=== PATIENT | female | born 1945 | race Caucasian/White ===

== ENCOUNTER 2021-03-11 12:34 | Inpatient (IN) | payer OTHER ==
[~2021-03-11] VITALS: Ht 167.6 cm; Wt 110.6 kg
[2021-03-11 13:57] LABS: BASOPHILS ABSOLUTE AUTO 0.01 K/mm3 (0.00-0.23); BASOPHILS PERCENT AUTO 0 % (0-2); EOSINOPHILS PERCENT AUTO 0 % (0-6); Hemoglobin 12.7 g/dL (11.5-16.0); IMMATURE GRAN ABSOLUTE AUTO 0.01 K/mm3 (0.00-0.10); IMMATURE GRAN PERCENT AUTO 0 % (0-1); LYMPHOCYTES ABSOLUTE AUTO 0.54 K/mm3 (0.84-5.20); LYMPHOCYTES PERCENT AUTO 13 % (21-46); MONOCYTES ABSOLUTE AUTO 0.27 K/mm3 (0.16-1.47); MONOCYTES PERCENT AUTO 7 % (4-13); Mean Corpuscular HGB 28.1 pg (26.0-34.0); Mean Corpuscular HGB Conc 31.8 g/dL (31.5-36.5); Mean Corpuscular Volume 89 fL (80-100); Mean Platelet Volume 10.5 fL (9.1-12.4); NEUTROPHILS PERCENT AUTO 80 % (41-73); Platelet Count 147 K/mm3 (150-400); RDW Coefficient Variation 15.1 % (11.7-14.2); RDW Standard Deviation 49.7 fL (35.1-46.3); Red Blood Cell Count 4.52 M/mm3 (3.80-5.20); White Blood Cell Count 4.03 K/mm3 (4.00-11.30)
[2021-03-11 14:32] LABS: Influenza A, PCR NEGATIVE (NEGATIVE); Influenza B, PCR NEGATIVE (NEGATIVE); Resp Syncytial Virus, PCR NEGATIVE (NEGATIVE)
[2021-03-11 14:35] LABS: Alanine Aminotransfer (ALT/SGP 88 U/L (12-78); Albumin, Blood 2.6 g/dL (3.4-5.0); Albumin/Globulin Ratio 0.7 (0.8-1.8); Alk Phos 69 U/L (50-136); Anion Gap 6 mmol/L (6-16); Aspartate Aminotrans (AST/SGOT 59 U/L (12-37); Bilirubin, Total 0.2 mg/dL (0.1-1.0); Blood Urea Nitrogen 12 mg/dL (8-24); Bun/Creatinine Ratio 18.8 (12.0-20.0); CO2, Blood 29 mmol/L (21-32); Calcium, Blood 8.6 mg/dL (8.5-10.1); Chloride, Blood 102 mmol/L (98-108); Creatinine, Blood 0.64 mg/dL (0.40-1.00); Globulin, Blood 3.7 g/dL (2.2-4.0); Glomerular Filtration Rate >60 (60-); Glucose, Blood 164 mg/dL (70-99); Magnesium, Blood 2.2 mg/dL (1.6-2.4); Potassium, Blood 3.4 mmol/L (3.5-5.5); Sodium, Blood 137 mmol/L (136-145); Total Protein, Blood 6.3 g/dL (6.4-8.2); Troponin I <0.015 ng/mL (0.000-0.040)
[2021-03-11 14:37] LABS: SARS-Cov-2 (COVID-19) PCR, MMC POSITIVE (NEGATIVE)
[2021-03-11] MEDS ORDERED: EUTHYROX88 MCG PO (16:51)
[2021-03-11] MEDS ORDERED: DOCU100 PO (16:51)
[2021-03-11] MEDS ORDERED: ACET325 PO (16:51)
[2021-03-11] MEDS ORDERED: MAGNESIUM OXID500 MG PO (16:52)
[2021-03-11] MEDS ORDERED: MELATONIN5 M1 PO (16:52)
[2021-03-11] MEDS ORDERED: OLAN5 PO (16:52)
[2021-03-11] MEDS ORDERED: SENNA LAXATIVE8.6 MG PO (16:53)
[2021-03-11] MEDS ORDERED: OMEP20ER PO (16:53)
[2021-03-11] MEDS ORDERED: MIRALAX17 GM PO (16:53)
[2021-03-11] MEDS ORDERED: TRAZ150T57 PO (16:54)
[2021-03-11] MEDS ORDERED: TAMO10 PO (16:54)
[2021-03-11] MEDS ORDERED: Vitamin D1000 UNI1 PO (16:54)
[2021-03-11] MEDS ORDERED: DULCOLAX400 MG/5 M PO (16:55)
[2021-03-11] MEDS ORDERED: NYSTOP15 GM TOP (16:55)
[2021-03-11] MEDS ORDERED: OLAN2.5 PO (16:55)
[2021-03-11] MEDS ORDERED: ALBU90OI (16:55)
--- NOTE | 2021-03-11 19:08 | NUR ---
1800 RECEIVED PT TO RM 324 VIA [facility] FROM ER. SLIDE TX TO BED. RECEIVED REPORT FROM MUSA LAW. PT ADMITTED WITH SOB R/T COVID. ON RA AT HOME; PLACED ON 6L O2 VIA NC. INNA AND CO-OP WITH CARE. REPORTS USING FWW AT [facility] TO GET AROUND. PER REPORT, PT FROM "[facility]" [facility] [place]. HOME MED LIST INCOMPLETE AT THIS TIME; NOT SENT UP BY ER REQUESTED. DINNER TRAY ORDERED. REPORT GIVEN TO ONCOMING RN. CALL LT IN REACH.
[2021-03-12 04:57] LABS: BASOPHILS ABSOLUTE AUTO 0.01 K/mm3 (0.00-0.23); BASOPHILS PERCENT AUTO 0 % (0-2); EOSINOPHILS PERCENT AUTO 0 % (0-6); Hematocrit 40.3 % (33.0-51.0); Hemoglobin 12.4 g/dL (11.5-16.0); IMMATURE GRAN ABSOLUTE AUTO 0.02 K/mm3 (0.00-0.10); IMMATURE GRAN PERCENT AUTO 0 % (0-1); LYMPHOCYTES ABSOLUTE AUTO 0.71 K/mm3 (0.84-5.20); LYMPHOCYTES PERCENT AUTO 15 % (21-46); MONOCYTES ABSOLUTE AUTO 0.28 K/mm3 (0.16-1.47); MONOCYTES PERCENT AUTO 6 % (4-13); Mean Corpuscular HGB Conc 30.8 g/dL (31.5-36.5); Mean Corpuscular Volume 91 fL (80-100); Mean Platelet Volume 10.2 fL (9.1-12.4); NEUTROPHILS ABSOLUTE AUTO 3.84 K/mm3 (1.96-9.15); NEUTROPHILS PERCENT AUTO 79 % (41-73); Platelet Count 148 K/mm3 (150-400); RDW Coefficient Variation 15.2 % (11.7-14.2); RDW Standard Deviation 51.1 fL (35.1-46.3); Red Blood Cell Count 4.43 M/mm3 (3.80-5.20); White Blood Cell Count 4.86 K/mm3 (4.00-11.30)
--- NOTE | 2021-03-12 05:30 | NUR ---
SHIFT SUMMARY: PT IS A/OX4. O2 SATS HAVE BEEN >92% WITH 5-6L. RA IS HER BASELINE SHE NOW IS ON CONTINOUS PULSE OX. THE PT DID WELL WITH SBA FWW TO THE BR. SHE DID RECEIVE HER 1ST DOSE OF REMDESIVIR THIS NOC SHIFT. CALL LIGHT IS WITHIN REACH AND WE'LL CONTINUE TO MONITOR.
[2021-03-12 05:39] LABS: Anion Gap 5 mmol/L (6-16); Blood Urea Nitrogen 11 mg/dL (8-24); Bun/Creatinine Ratio 18.8 (12.0-20.0); CO2, Blood 33 mmol/L (21-32); Calcium, Blood 8.4 mg/dL (8.5-10.1); Chloride, Blood 104 mmol/L (98-108); Creatinine, Blood 0.59 mg/dL (0.40-1.00); Glomerular Filtration Rate >60 (60-); Glucose, Blood 112 mg/dL (70-99); Potassium, Blood 4.1 mmol/L (3.5-5.5); Sodium, Blood 142 mmol/L (136-145)
--- NOTE | 2021-03-12 15:41 | NUR ---
SHIFT SUMMARY PT RESTING QUIETLY IN BED THRU OUT THE DAY. UP TO BTHRM USING FWW WITH SBA. PT REMAINS ON 6L O2 VIA NC WITH SATS IN LOW TO MID 90'S. PT DOES DESAT WHEN UP TO BTHRM AND APPEARS TO HAVE DYSPNEA WITH EXERTION. PT DOES RECOVER WELL ONCE BACK IN BED. PT IS MOSTLY CONTINENT OF URINE; HAS BEEN INCONTINENT 3X'S TODAY. BED ALARM ON FOR SAFETY, PT DOES NOT ALWAYS CALL FOR ASSIST. PT IS EATING AND DRINKING FAIRLY WELL. NO C/O. DENIES FURTHER NEEDS. CALL LT IN REACH.
--- NOTE | 2021-03-13 04:31 | NUR ---
Shift Summary Patient remains on 6L of O2 via N/C. She is AAOX3, No complaint of pain. She slept throughout the nignt. No acute changes. We will continue to monitor patient.
[2021-03-13 05:11] LABS: International Normalized Ratio 0.99; Prothrombin Time Results 10.4 Sec (9.7-11.5)
[2021-03-13 05:41] LABS: Anion Gap 5 mmol/L (6-16); Blood Urea Nitrogen 15 mg/dL (8-24); Bun/Creatinine Ratio 26.1 (12.0-20.0); CO2, Blood 34 mmol/L (21-32); Calcium, Blood 8.5 mg/dL (8.5-10.1); Chloride, Blood 102 mmol/L (98-108); Creatinine, Blood 0.57 mg/dL (0.40-1.00); Ferritin, Serum 320 ng/mL (8-252); Glomerular Filtration Rate >60 (60-); Glucose, Blood 107 mg/dL (70-99); Lactate Dehydrogenase (Ld),Bld 275 U/L (100-240); Magnesium, Blood 2.3 mg/dL (1.6-2.4); Potassium, Blood 3.9 mmol/L (3.5-5.5); Sodium, Blood 141 mmol/L (136-145); Troponin I <0.015 ng/mL (0.000-0.040)
[2021-03-13 09:00] LABS: BASOPHILS ABSOLUTE AUTO 0.01 K/mm3 (0.00-0.23); BASOPHILS PERCENT AUTO 0 % (0-2); EOSINOPHILS PERCENT AUTO 0 % (0-6); Hematocrit 41.7 % (33.0-51.0); Hemoglobin 12.8 g/dL (11.5-16.0); IMMATURE GRAN ABSOLUTE AUTO 0.03 K/mm3 (0.00-0.10); IMMATURE GRAN PERCENT AUTO 1 % (0-1); LYMPHOCYTES PERCENT AUTO 19 % (21-46); MONOCYTES ABSOLUTE AUTO 0.37 K/mm3 (0.16-1.47); MONOCYTES PERCENT AUTO 9 % (4-13); Mean Corpuscular HGB 28.1 pg (26.0-34.0); Mean Corpuscular HGB Conc 30.7 g/dL (31.5-36.5); Mean Corpuscular Volume 92 fL (80-100); Mean Platelet Volume 10.4 fL (9.1-12.4); NEUTROPHILS ABSOLUTE AUTO 2.96 K/mm3 (1.96-9.15); NEUTROPHILS PERCENT AUTO 71 % (41-73); Platelet Count 193 K/mm3 (150-400); RDW Coefficient Variation 15.3 % (11.7-14.2); RDW Standard Deviation 51.1 fL (35.1-46.3); Red Blood Cell Count 4.55 M/mm3 (3.80-5.20); White Blood Cell Count 4.17 K/mm3 (4.00-11.30)
--- NOTE | 2021-03-13 18:04 | NUR ---
DAY SHIFT SUMMARY 75 YEAR OLD FEMALE WITH COVID-19, ON 6L O2 WITH O2 SATS IN THE HIGHER 80'S. STANDBY ASSIST TO BSC. WHEEZING AUDIBLY NOTED. CALL LIGHT WITHIN REACH OF PT AND ABLE TO CALL APPROPRIATELY. NO ACUTE CHANGES WITH PT THIS SHIFT.
--- NOTE | 2021-03-14 03:07 | NUR ---
Pt is alert and oriented x4. No complains of pain. During start of shift pt was in 6L oxygen NC O2 levels between 85-90%. Patient complains of SOB especially during exertion. During hourly rounding, pt was found with O2 of 81-85%, called respiratory therapist, RT placed patient on a heated high flow 55 L patient O2 saturation is at 93-95%. When patients gets up to ambulate, her oxygen levels drop significantly and it takes several minutes for her oxygen level to increase. she is laying on bed comfortable. all needs attended. pt had a snack as well. call light within reach.
--- NOTE | 2021-03-14 03:52 | NUR ---
Pt was placed in CPAP for oxygen. Dr. Fritz notified. RT Kerwin is assisting with the CPAP. Pt is now resting. No signs of respiratory distress. No complains of pain.
--- NOTE | 2021-03-14 04:54 | NUR ---
Pt is going to PCU for upgrade needing higher oxygen. Spoke with Dr. Fritz, received orders for upgrade to PCU, XR CHEST, 40 MG lasix IV. Report given to ANI Vásquez
[2021-03-14 05:41] LABS: BASOPHILS PERCENT AUTO 0 % (0-2); EOSINOPHILS PERCENT AUTO 0 % (0-6); Hematocrit 40.3 % (33.0-51.0); Hemoglobin 12.9 g/dL (11.5-16.0); Mean Corpuscular HGB 28.5 pg (26.0-34.0); Mean Corpuscular Volume 89 fL (80-100); Mean Platelet Volume 10.1 fL (9.1-12.4); Platelet Count 218 K/mm3 (150-400); RDW Coefficient Variation 14.5 % (11.7-14.2); RDW Standard Deviation 47.4 fL (35.1-46.3); Red Blood Cell Count 4.53 M/mm3 (3.80-5.20); White Blood Cell Count 3.34 K/mm3 (4.00-11.30)
[2021-03-14 05:42] LABS: IMMATURE GRAN ABSOLUTE AUTO 0.02 K/mm3 (0.00-0.10); IMMATURE GRAN PERCENT AUTO 1 % (0-1); LYMPHOCYTES ABSOLUTE AUTO 0.52 K/mm3 (0.84-5.20); LYMPHOCYTES PERCENT AUTO 16 % (21-46); MONOCYTES ABSOLUTE AUTO 0.22 K/mm3 (0.16-1.47); MONOCYTES PERCENT AUTO 7 % (4-13); NEUTROPHILS ABSOLUTE AUTO 2.58 K/mm3 (1.96-9.15); NEUTROPHILS PERCENT AUTO 77 % (41-73)
[2021-03-14 05:54] LABS: Source, Urine Foley catheter
--- NOTE | 2021-03-14 05:55 | NUR ---
ASSUMED CARE 0550 ASSUMED CARE OF PT FROM MEDICAL FLOOR. AXO. IN SR. VSS. ON BIPAP 26/11 75%. TOLERATING BPAP WELL. IV LASIX GIVEN AND GALVAN PLACED FOR DIURESING WITH INCREASED O2 DEMANDS. PT ORIENTED TO ROOM. PT HAS CALL LIGHT IN HAND. RESTING COMFORTABLY. BED ALARM ON. ISOLATION IN PLACE. UA SENT TO LAB. AWAITING CXR.
[2021-03-14 05:57] LABS: Bilirubin, Urine Neg (Neg); Blood, Urine Neg (Neg); Glucose Qualitative, Urine 3+ (Neg); Ketones, Urine Neg (Neg); Leukocyte Esterase, Urine Neg (Neg); Nitrite, Urine Neg (Neg); Protein, Urine 1+ (Neg); Specific Gravity, Urine 1.015 (1.003-1.022); Urobilinogen, Urine NORM (Normal)
[2021-03-14 05:58] LABS: Appearance, Urine Clear (Clear); Color, Urine Yellow (P-Yellow)
[2021-03-14 06:25] LABS: Anion Gap 3 mmol/L (6-16); Blood Urea Nitrogen 16 mg/dL (8-24); Bun/Creatinine Ratio 27.9 (12.0-20.0); CO2, Blood 33 mmol/L (21-32); Calcium, Blood 8.6 mg/dL (8.5-10.1); Chloride, Blood 102 mmol/L (98-108); Creatinine, Blood 0.57 mg/dL (0.40-1.00); Glomerular Filtration Rate >60 (60-); Glucose, Blood 271 mg/dL (70-99); Potassium, Blood 4.1 mmol/L (3.5-5.5); Sodium, Blood 138 mmol/L (136-145)
--- NOTE | 2021-03-14 07:58 | NUR ---
CARE ASSUMPTION PATIENT IS ALERT AND ORIENTATED X4. VSS. BIPAP 14/10 75% SPO2 >90%. PATIENT REPORTS NO CHEST PAIN/PRESSURE, HEADACHE, SHORTNESS OF BREATH OR PAIN. PATIENT HAS NUMBNESS AND TINGLING TO LOWER EXTREMITIES, WHICH PATIENT STATES IS HER BASELINE. GALVAN CATH IN PLACE DRAINING WITH GRAVITY, CLEAR YELLOW. LUNG SOUNDS CLEAR/DIM. SEE SHIFT ASSESSMENT FOR FULL ASSESSMENT DETAILS. CALL LIGHT WITHIN REACH AND BED IN LOWEST POSITION. WILL CONTINUE TO MONITOR AND PROVIDE CARE.
--- NOTE | 2021-03-14 16:54 | NUR ---
SHIFT SUMMARY PATIENT A/OX4, FORGETFULL AT TIMES. THIS RN REMINDED THE PATIENT MULTIPLE TIMES THROUGHOUT THE DAY THERE IS A CATHETER IN PLACE, SO THE PATIENT CAN PEE WHEN THE URGE COMES. PATIENT VERBALIZED UNDERSTANDING. VSS. TELE SR 88. SPO2 >90% ON AIRVO 40 70%. PATIENT CALLS APPROPRIATELY. PATIENT HAS SLEPT OFF AND ON THROUGHOUT THE DAY. NO ACUTE CHANGES THIS SHIFT. CALL LIGHT WITHIN REACH AND BED IN LOWEST POSITION. GALVAN CATH IN PLACE DRAINING WITH GRAVITY, YELLOW COLOR. WILL CONTINUE TO MONITOR AND PROVIDE CARE UNTIL HAND OFF WITH NEXT SHIFT.
[2021-03-15 04:29] LABS: BASOPHILS ABSOLUTE AUTO 0.01 K/mm3 (0.00-0.23); BASOPHILS PERCENT AUTO 0 % (0-2); EOSINOPHILS PERCENT AUTO 0 % (0-6); Hematocrit 42.7 % (33.0-51.0); Hemoglobin 13.3 g/dL (11.5-16.0); IMMATURE GRAN ABSOLUTE AUTO 0.03 K/mm3 (0.00-0.10); IMMATURE GRAN PERCENT AUTO 1 % (0-1); LYMPHOCYTES ABSOLUTE AUTO 0.72 K/mm3 (0.84-5.20); LYMPHOCYTES PERCENT AUTO 11 % (21-46); MONOCYTES ABSOLUTE AUTO 0.28 K/mm3 (0.16-1.47); MONOCYTES PERCENT AUTO 4 % (4-13); Mean Corpuscular HGB 27.8 pg (26.0-34.0); Mean Corpuscular HGB Conc 31.1 g/dL (31.5-36.5); Mean Corpuscular Volume 89 fL (80-100); Mean Platelet Volume 9.9 fL (9.1-12.4); NEUTROPHILS ABSOLUTE AUTO 5.44 K/mm3 (1.96-9.15); NEUTROPHILS PERCENT AUTO 84 % (41-73); Platelet Count 253 K/mm3 (150-400); RDW Coefficient Variation 14.5 % (11.7-14.2); RDW Standard Deviation 47.6 fL (35.1-46.3); Red Blood Cell Count 4.78 M/mm3 (3.80-5.20); White Blood Cell Count 6.48 K/mm3 (4.00-11.30)
[2021-03-15 04:44] LABS: Alanine Aminotransfer (ALT/SGP 122 U/L (12-78); Albumin, Blood 2.7 g/dL (3.4-5.0); Albumin/Globulin Ratio 0.7 (0.8-1.8); Alk Phos 69 U/L (50-136); Anion Gap 4 mmol/L (6-16); Aspartate Aminotrans (AST/SGOT 52 U/L (12-37); Bilirubin, Total 0.5 mg/dL (0.1-1.0); Blood Urea Nitrogen 21 mg/dL (8-24); CO2, Blood 37 mmol/L (21-32); Calcium, Blood 9.1 mg/dL (8.5-10.1); Chloride, Blood 98 mmol/L (98-108); Creatinine, Blood 0.54 mg/dL (0.40-1.00); Globulin, Blood 3.7 g/dL (2.2-4.0); Glomerular Filtration Rate >60 (60-); Glucose, Blood 216 mg/dL (70-99); Potassium, Blood 4.2 mmol/L (3.5-5.5); Sodium, Blood 139 mmol/L (136-145); Total Protein, Blood 6.4 g/dL (6.4-8.2)
--- NOTE | 2021-03-15 05:46 | NUR ---
SHIFT SUMMARY PT ALERT BUT LETHARGIC. PT STARTED SHIFT ON AIRVO BUT WAS PLACED ON BIPAP 10 90%. TITRATED DOWN TO 85% BUT THAT IS THE LOWEST FIO2 THE PT HAS TOLERATED SINCE. OTHERWISE, VITALS STABLE. LUNG SOUNDS UNCHANGED. DIM T/O. GALVAN PATENT AND DRAINING. POWERGLIDE DRAWS WELL. PT RR 20-30. [place] PLACED ON BIPAP TO ALLOW FOR SAFER ORAL CARE SESSIONS, PT TOLERATED ORAL CARE WELL. PT BEING TURNED BY STAFF. OTHERWISE, BED ALARM IN PLACE. BED IN LOW POSITION.
--- NOTE | 2021-03-15 16:25 | NUR ---
PT WAS MOVED FROM MEDICAL FLOOR TO PCU, HER CONDITION HAS WORSENED. SHE IS CURRENTLY ALTERNATING AIRVO AND BIPAP. TOO EARLY TO KNOW HOW WELL SHE WILL DO OVER THE COURSE OF TREATMENT, BUT REMAINING HOPEFUL AT THIS POINT. WILL REMAIN AVAIABLE. MEL BLISS RN
--- NOTE | 2021-03-15 18:02 | NUR ---
END OF SHIFT SUMMARY: PATIENT HAS BEEN SLEEPING MOST OF THE DA, REPOSITIONED PATIENT SHE HAS NOT BEEN SELF REPOSITIONING VERY FREQUENTLY. HAS BEEN INFUSING TKO AT 10 OF NS. SANTI POWERGLIDE. FLOWS AND DRAWS. ARCHANA WAS ABLE TO SWITCH FROM THE AIRVO TO BIPAP BUT NO CHANGE IN PRESSURE OR FIO2 DECREASE. PATIENT DENIES CHEST PAIN, SOB THAT IS SEVERE, FAITUGED. PATIENT HAD A CLEAN SACRUM, WILL INFORM NIGHT TO TRANSFER MORE OFTEN, DUE TO NOT SELF REPOSITIONING. SR, WAS ABLE TO EAT MOST OF THE DAY ON AIRVO, BUT WILL NEED TO MOST LIKELY SWITCH BACK TO BIPAP.
[2021-03-16 05:49] LABS: BASOPHILS ABSOLUTE AUTO 0.01 K/mm3 (0.00-0.23); BASOPHILS PERCENT AUTO 0 % (0-2); EOSINOPHILS PERCENT AUTO 0 % (0-6); Hematocrit 40.4 % (33.0-51.0); Hemoglobin 12.7 g/dL (11.5-16.0); IMMATURE GRAN ABSOLUTE AUTO 0.05 K/mm3 (0.00-0.10); IMMATURE GRAN PERCENT AUTO 1 % (0-1); LYMPHOCYTES ABSOLUTE AUTO 0.74 K/mm3 (0.84-5.20); LYMPHOCYTES PERCENT AUTO 10 % (21-46); MONOCYTES ABSOLUTE AUTO 0.32 K/mm3 (0.16-1.47); MONOCYTES PERCENT AUTO 4 % (4-13); Mean Corpuscular HGB 27.7 pg (26.0-34.0); Mean Corpuscular HGB Conc 31.4 g/dL (31.5-36.5); Mean Corpuscular Volume 88 fL (80-100); Mean Platelet Volume 10.2 fL (9.1-12.4); NEUTROPHILS ABSOLUTE AUTO 6.17 K/mm3 (1.96-9.15); NEUTROPHILS PERCENT AUTO 85 % (41-73); Platelet Count 279 K/mm3 (150-400); RDW Coefficient Variation 14.3 % (11.7-14.2); RDW Standard Deviation 45.9 fL (35.1-46.3); Red Blood Cell Count 4.59 M/mm3 (3.80-5.20); White Blood Cell Count 7.29 K/mm3 (4.00-11.30)
--- NOTE | 2021-03-16 06:18 | NUR ---
SHIFT SUMMARY: PATIENT TRANSITIONED FROM AIRVO TO BIPAP AT 1999; MAINTAINING O2 SATS >96% T/O SHIFT. PATIENT FATIGUED FROM WORK OF BREATHING. VS STABLE T/O SHIFT, DENIES PAIN. STAFF ARE ASSISTING PATIENT IN TURNING SHE IS TOO FATIGUED TO SHIFT WEIGHT - SKIN CURRENTLY IN GOOD CONDITION. WILL CONTINUE TO MONITOR AND REPORT TO ONCOMING RN.
[2021-03-16 06:30] LABS: Magnesium, Blood 2.5 mg/dL (1.6-2.4)
[2021-03-16 06:32] LABS: C-REACTIVE PROTEIN, EXT RANGE 0.862 mg/dL (0.000-0.300)
[2021-03-16 06:34] LABS: Alanine Aminotransfer (ALT/SGP 89 U/L (12-78); Albumin, Blood 2.6 g/dL (3.4-5.0); Albumin/Globulin Ratio 0.8 (0.8-1.8); Alk Phos 61 U/L (50-136); Anion Gap 5 mmol/L (6-16); Aspartate Aminotrans (AST/SGOT 21 U/L (12-37); Bilirubin, Total 0.4 mg/dL (0.1-1.0); Blood Urea Nitrogen 18 mg/dL (8-24); CO2, Blood 32 mmol/L (21-32); Calcium, Blood 8.4 mg/dL (8.5-10.1); Chloride, Blood 99 mmol/L (98-108); Creatinine, Blood 0.56 mg/dL (0.40-1.00); Globulin, Blood 3.4 g/dL (2.2-4.0); Glomerular Filtration Rate >60 (60-); Glucose, Blood 262 mg/dL (70-99); Phosphorus, Blood 2.6 mg/dL (2.5-4.9); Potassium, Blood 4.2 mmol/L (3.5-5.5); Sodium, Blood 136 mmol/L (136-145)
--- NOTE | 2021-03-16 16:41 | NUR ---
Spoke to pt's sister Pallavi, brother Krzysztof and daughter Miri several times today, relaying information on pt's condition. Pt is positive for Coronvirus, and is currently on the bipap, as she is no longer tolerating the airvo. She is unable to tolerate proning either. Patient lives at an [facility], and today they sent pt's advanced directive, and pt made it clear she had chosen no feeding tube, no CPR. Family in agreement, and Dr. Venegas gave verbal DNR order. Pt's daughter Miri is flying in tomorrow.
--- NOTE | 2021-03-16 17:33 | NUR ---
END OF SHIFT SUMMARY: LARGE CHANGES PATIENT HAS BEEN SWITCHED TO DNR STATUS. FAMILY INVOLED IS THE DAUGHTER BROTHER AND SISTER WHICH THE SISTER IS THE POA FOR HEALTHCARE BUT ALL THREE DISCUSS AND PLAN FROM THERE. SHE WAS ON 18/10 FOR BIPAP PRESSURES AND DECREASED TO 14/10 THROUGHOUT THE DAY, SHE WAS ONLY ABLE TO TOLERATE VERY HIGH FLOW AND FIO2 ON AIRVO FOR A COUPLE HOURS. WAS ABLE TO EAT LUNCH, AND HAD A LARGE INTAKE OF WATER IN DURING THAT COUPLE HOURS, WHICH INCREASED HER URINE OUTPUT TREMENDOUSLY, URINE IS CLEAR YELLOW PATINET WAS MOVED Q2, ORAL CARE Q4, PERICARE PREFORMED IN THE AM AND INTERMITTENTLY NEEDED. SACRUM STILL FREE OF DECUBITI. NSR TO VERY SLIGHTLY HIGH 50'S WHEN SLEEPING HARD. IS STILL EXHAUSTED THROUGH THE DAY. PATIENT STILL DENIES CHEST PAIN. WILL CONTINUE TO MONITOR.
--- NOTE | 2021-03-17 05:40 | NUR ---
SHIFT SUMMARY PT A&OX4. SP02>92% ON BIPAP / 70% FI02. TOLERATED AIRVO WHILE TAKING MEDIACTION/ORAL CARE. SOB W/ EXERTION, GENERALIZED WEAKNESS. TELEMETRY SHOWS NSR, HR 60'S. PT DI DHAVE ONE 9 BEAT RUN OF SVT AT START OF SHIFT. GALVAN CATHETER DRAINING CLEAR YELLOW URINE TO GRAVITY. NO BM THIS SHIFT. DENIES PAIN. PT REPOSITIONED Q2H. ORAL CARE DONE. FLUIDS INFUSING TKO. CALL LIGHT IN REACH.
[2021-03-17 06:56] LABS: BASOPHILS ABSOLUTE AUTO 0.02 K/mm3 (0.00-0.23); BASOPHILS PERCENT AUTO 0 % (0-2); EOSINOPHILS PERCENT AUTO 0 % (0-6); Hematocrit 40.4 % (33.0-51.0); Hemoglobin 12.9 g/dL (11.5-16.0); IMMATURE GRAN ABSOLUTE AUTO 0.06 K/mm3 (0.00-0.10); IMMATURE GRAN PERCENT AUTO 1 % (0-1); LYMPHOCYTES ABSOLUTE AUTO 0.82 K/mm3 (0.84-5.20); LYMPHOCYTES PERCENT AUTO 9 % (21-46); MONOCYTES ABSOLUTE AUTO 0.41 K/mm3 (0.16-1.47); MONOCYTES PERCENT AUTO 4 % (4-13); Mean Corpuscular HGB 27.9 pg (26.0-34.0); Mean Corpuscular HGB Conc 31.9 g/dL (31.5-36.5); Mean Corpuscular Volume 87 fL (80-100); Mean Platelet Volume 9.9 fL (9.1-12.4); NEUTROPHILS ABSOLUTE AUTO 8.07 K/mm3 (1.96-9.15); NEUTROPHILS PERCENT AUTO 86 % (41-73); Platelet Count 283 K/mm3 (150-400); RDW Coefficient Variation 14.1 % (11.7-14.2); RDW Standard Deviation 45.3 fL (35.1-46.3); Red Blood Cell Count 4.62 M/mm3 (3.80-5.20); White Blood Cell Count 9.38 K/mm3 (4.00-11.30)
[2021-03-17 07:22] LABS: Alanine Aminotransfer (ALT/SGP 71 U/L (12-78); Albumin, Blood 2.6 g/dL (3.4-5.0); Albumin/Globulin Ratio 0.8 (0.8-1.8); Alk Phos 58 U/L (50-136); Anion Gap 4 mmol/L (6-16); Aspartate Aminotrans (AST/SGOT 12 U/L (12-37); Bilirubin, Total 0.2 mg/dL (0.1-1.0); Blood Urea Nitrogen 21 mg/dL (8-24); Bun/Creatinine Ratio 38.7 (12.0-20.0); CO2, Blood 31 mmol/L (21-32); Calcium, Blood 8.4 mg/dL (8.5-10.1); Chloride, Blood 100 mmol/L (98-108); Creatinine, Blood 0.54 mg/dL (0.40-1.00); Globulin, Blood 3.4 g/dL (2.2-4.0); Glomerular Filtration Rate >60 (60-); Glucose, Blood 299 mg/dL (70-99); Potassium, Blood 4.5 mmol/L (3.5-5.5); Sodium, Blood 135 mmol/L (136-145)
--- NOTE | 2021-03-17 15:34 | NUR ---
Met with pt's daughter Miri to discuss pt's code status, current condition and plan of care. At this time, pt's code status is DNR. Pt's daughter was able to see pt today as she was declining last nite, and wondered if it was time to begin comfort care. However, the pt stabilitzed and is now sitting at 97% on 60L/m and 70Fi0. Daughter Miri is returning to her aunt's home in [place].
--- NOTE | 2021-03-17 17:38 | NUR ---
END OF SHIFT: PATINET WAS ON 18 70%. RT WAS ABLE TO DROP THE PRESSURES ON BIPAP TO 14/10 AT 60% FIO2. AIRVO PERIODICALLY THROUGHOUT THE DAY FOR PILLS AND LUNCH, DID SUSTAIN ON AIRVO FOR ATLEAST 3 HOURS SPO2> 90%. PATIENT DOES BECOME FATIGUED AND NEEDS SWITCHED TO AIRVO, PATIENT AGREEABLE AND UNDERSTANDING, WITH RELIEF MOST OF THE TIME. PATIENT'S FAMILY WAS ABLE TO STOP BY PALLIATIVE STILL ON CASE. PATIENT IS STILL DNR. GREAT OUTPUT, CBG'S AC, AND LCS MEAL TIME INSULIN. Q2 TURNS, Q4 ORAL CARE PREFORMED. POWERGLIDE DOES DRAW WILL INFORM NIGHT RN. BED BATH TODAY. PATIENT HAS BEEN SB TO SR HIGHER 50'S TO 60'S, DENIES CHEST PAIN. MICONAZOLE IN THE ROOM. STILL NO BM WILL INFORM NIGHT RN AND CONTINUE TO MONITOR PATIENT.
--- NOTE | 2021-03-18 06:11 | NUR ---
SHIFT SUMMARY NO ACUTE CHANGES THIS SHIFT. PT ALERT, ANSWERS QUESTIONS APPROPRIATELY. SP02>92% ON AIRVO 60L 60% FI02. BIPAP AFTER MIDNIGHT. SOB W/ EXERTION, GENERALIZED WEAKNESS. TELEMETRY SHOWS NSR, HR 60'S. PT DI DHAVE ONE 11 BEAT RUN OF SVT AT START OF SHIFT. GALVAN CATHETER DRAINING CLEAR YELLOW URINE TO GRAVITY. ONE LARGE, PASTY BM THIS SHIFT. DENIES PAIN. PT REPOSITIONED Q2H. ORAL CARE DONE Q4H. FLUIDS INFUSING TKO. PT AWAKE MOST OF NIGHT WATCHING CARTOONS. CALL LIGHT IN REACH.
[2021-03-18 10:16] LABS: Alanine Aminotransfer (ALT/SGP 66 U/L (12-78); Albumin, Blood 3.1 g/dL (3.4-5.0); Albumin/Globulin Ratio 0.8 (0.8-1.8); Alk Phos 70 U/L (50-136); Anion Gap 6 mmol/L (6-16); Aspartate Aminotrans (AST/SGOT 17 U/L (12-37); Bilirubin, Total 0.4 mg/dL (0.1-1.0); Blood Urea Nitrogen 19 mg/dL (8-24); Bun/Creatinine Ratio 31.5 (12.0-20.0); CO2, Blood 31 mmol/L (21-32); Chloride, Blood 99 mmol/L (98-108); Globulin, Blood 3.8 g/dL (2.2-4.0); Glomerular Filtration Rate >60 (60-); Glucose, Blood 328 mg/dL (70-99); Phosphorus, Blood 2.8 mg/dL (2.5-4.9); Potassium, Blood 4.1 mmol/L (3.5-5.5); Sodium, Blood 136 mmol/L (136-145); Total Protein, Blood 6.9 g/dL (6.4-8.2)
--- NOTE | 2021-03-18 11:36 | NUR ---
Pt's Fi02 down to 50. She was initially requiring 85-90, then down to 70 for about 48 hours. I called and relayed the information to pt's daughter Miri. Pt's mood is ok, she denies feeling scared, stressed, or SOB. She has been tolerating cpap well, and even though she prefers airvo, she does accept the needed change to relieve her work of breathing. She did eat breakfast again today. Denies any immediate concerns at this time. Miri is currently staying in [place] with her Aunt Pallavi, pt's sister. She flew to [place] to be nearby, as pt's prognosis was in question over the past several days. It is still unclear, but seeing improvement in Fi02 is encouraging, to both patient and family. Plan to call family again tomorrow morning with another status update; sooner if any big changes occur.
--- NOTE | 2021-03-18 18:28 | NUR ---
SHIFT SUMMARY PT A/O X4 AND COOPERATIVE OF CARE. PT ABLE TO ANSWER QUESTIONS APPROPIATELY. VSS THROUGHOUT SHIFT WITH O2 SATS >90% ON BOTH BIPAP FOR BEGINNING OF SHIFT AND AIRVO DURING THE DAY. PT SATS DIPPED TO HIGH 80'S WHILE PT WAS EATING DINNER, FIO2 INCREASED TO 70%. NO REPORT OF CHEST PAIN/PRESSURE THROUGHOUT SHIFT. GALVAN IN PLACE DRAINING TO GRAVITY, YELLOW URINE.
--- NOTE | 2021-03-19 05:44 | NUR ---
SHIFT SUMMARY NO ACUTE CHANGES THIS SHIFT. PT AWAKE BUT APPEARED MORE TIRED THAN PREVIOUS NIGHT. SP02>92% ON AIRVO 60L 60% FI02. BIPAP ON SHORTLY AFTER SHIFT CHANGE. GENERALIZED WEAKNESS. TELEMETRY SHOWS NSR, HR 40'S-60'S. PT HAD ONE 5 BEAT RUN OF VTACH AT START OF SHIFT. GALVAN CATHETER DRAINING CLEAR YELLOW URINE TO GRAVITY. DENIES PAIN. PT REPOSITIONED Q2H. ORAL CARE DONE Q4H. PT SLEPT MOST OF NIGHT. CALL LIGHT IN REACH.
[2021-03-19 08:47] LABS: Anion Gap 3 mmol/L (6-16); Blood Urea Nitrogen 24 mg/dL (8-24); Bun/Creatinine Ratio 43.8 (12.0-20.0); CO2, Blood 32 mmol/L (21-32); Calcium, Blood 8.8 mg/dL (8.5-10.1); Chloride, Blood 102 mmol/L (98-108); Creatinine, Blood 0.55 mg/dL (0.40-1.00); Glomerular Filtration Rate >60 (60-); Glucose, Blood 297 mg/dL (70-99); Phosphorus, Blood 3.6 mg/dL (2.5-4.9); Potassium, Blood 4.6 mmol/L (3.5-5.5); Sodium, Blood 137 mmol/L (136-145)
--- NOTE | 2021-03-19 14:38 | NUR ---
updated daughter on progress
--- NOTE | 2021-03-19 18:04 | NUR ---
SHIFT SUMMARY PT A/O X4 AND COOPERATIVE OF CARE. VSS THROUGHOUT SHIFT WITH 02 SATS >91% ON 50L/60% FIO2 AIRVO. PT SEEN BY PHYSICAL THERAPY, PLAN TO HAVE RECLINER FOR TOMORROW AND HAVE PT TRANSFER TO RELCINER. GALVAN IN PLACE DRAINING TO GRAVITY, LEAKING AROUND CATHETER. NO REPORT OF CHEST PAIN/PRESSURE THROUGHOUT SHIFT. PT REPORTED TENDERNESS OF BOTH ANKLES, REPOSITIONING TENDS TO HELP. PT HAD A 6 BEAT RUN OF SVT, PRINT OUT IN CHART.
[2021-03-20 04:03] LABS: BASOPHILS ABSOLUTE AUTO 0.06 K/mm3 (0.00-0.23); BASOPHILS PERCENT AUTO 0 % (0-2); EOSINOPHILS PERCENT AUTO 0 % (0-6); Hematocrit 43.5 % (33.0-51.0); Hemoglobin 14.2 g/dL (11.5-16.0); IMMATURE GRAN ABSOLUTE AUTO 0.39 K/mm3 (0.00-0.10); IMMATURE GRAN PERCENT AUTO 3 % (0-1); LYMPHOCYTES ABSOLUTE AUTO 1.05 K/mm3 (0.84-5.20); LYMPHOCYTES PERCENT AUTO 7 % (21-46); MONOCYTES ABSOLUTE AUTO 0.45 K/mm3 (0.16-1.47); MONOCYTES PERCENT AUTO 3 % (4-13); Mean Corpuscular HGB 27.8 pg (26.0-34.0); Mean Corpuscular HGB Conc 32.6 g/dL (31.5-36.5); Mean Corpuscular Volume 85 fL (80-100); Mean Platelet Volume 9.9 fL (9.1-12.4); NEUTROPHILS PERCENT AUTO 86 % (41-73); Platelet Count 269 K/mm3 (150-400); RDW Coefficient Variation 13.8 % (11.7-14.2); RDW Standard Deviation 43.6 fL (35.1-46.3); Red Blood Cell Count 5.11 M/mm3 (3.80-5.20); White Blood Cell Count 14.15 K/mm3 (4.00-11.30)
[2021-03-20 04:16] LABS: Anion Gap 7 mmol/L (6-16); Blood Urea Nitrogen 21 mg/dL (8-24); Bun/Creatinine Ratio 41.2 (12.0-20.0); CO2, Blood 28 mmol/L (21-32); Calcium, Blood 8.7 mg/dL (8.5-10.1); Chloride, Blood 100 mmol/L (98-108); Creatinine, Blood 0.51 mg/dL (0.40-1.00); Glomerular Filtration Rate >60 (60-); Glucose, Blood 285 mg/dL (70-99); Potassium, Blood 4.8 mmol/L (3.5-5.5); Sodium, Blood 135 mmol/L (136-145)
--- NOTE | 2021-03-20 05:28 | NUR ---
SHIFT SUMMARY PT ALERT AND ORIENTED X4. HR 60'S-70'S NSR. BP STABLE. ON 50L AIRVO 60% FIO2 MAINTAINING SATS OVER 92%. PT DENIES PAIN. GALVAN APPEARED TO BE LEAKING. REMOVED AND REPLACED. NEW GALVAN DRAINING YELLOW URINE TO GRAVITY. PG IN SANTI DOES NOT DRAW. PT IN BED SLEEPING WITH CALL ALARM AT SIDE. WILL CONTINUE TO MONITOR UNTIL REPORT GIVEN TO DAYSHIFT RN
--- NOTE | 2021-03-20 17:14 | NUR ---
SHIFT SUMMARY PT ALERT AND ORIENTED. VS STABLE. HR NSR. PT DENIES ANY PAIN. O2 SATS HAVE REMAINED ABOVE 90% AND PT HAS BEEN TITRATED TO 50L 55% FIO2 VIA HEATED HIGH FLOW CANNULA. PT REPORTS THAT IT FEELS EASIER TO BREATHE TODAY. PT TOLERATED AMBULATING TO RECLINER AND SAT IN THE RECLINER FOR APPROXIMATELY 2 HOURS THIS AFTERNOON. BED BATH GIVEN. GALVAN PATENT AND DRAINING CLEAR YELLOW URINE. PT REPOSITIONED Q2H. WILL CONTINUE TO MONITOR AND REPORT TO ONCOMING RN.
[2021-03-21 05:48] LABS: BASOPHILS ABSOLUTE AUTO 0.07 K/mm3 (0.00-0.23); BASOPHILS PERCENT AUTO 1 % (0-2); EOSINOPHILS ABSOLUTE AUTO 0.01 K/mm3 (0.00-0.68); EOSINOPHILS PERCENT AUTO 0 % (0-6); Hematocrit 43.4 % (33.0-51.0); Hemoglobin 13.9 g/dL (11.5-16.0); IMMATURE GRAN ABSOLUTE AUTO 0.48 K/mm3 (0.00-0.10); IMMATURE GRAN PERCENT AUTO 3 % (0-1); LYMPHOCYTES ABSOLUTE AUTO 1.12 K/mm3 (0.84-5.20); LYMPHOCYTES PERCENT AUTO 8 % (21-46); MONOCYTES ABSOLUTE AUTO 0.48 K/mm3 (0.16-1.47); MONOCYTES PERCENT AUTO 3 % (4-13); Mean Corpuscular HGB 27.9 pg (26.0-34.0); Mean Corpuscular Volume 87 fL (80-100); NEUTROPHILS ABSOLUTE AUTO 12.19 K/mm3 (1.96-9.15); NEUTROPHILS PERCENT AUTO 85 % (41-73); Platelet Count 284 K/mm3 (150-400); RDW Coefficient Variation 14.3 % (11.7-14.2); RDW Standard Deviation 45.5 fL (35.1-46.3); Red Blood Cell Count 4.98 M/mm3 (3.80-5.20); White Blood Cell Count 14.35 K/mm3 (4.00-11.30)
[2021-03-21 06:09] LABS: Anion Gap 6 mmol/L (6-16); Blood Urea Nitrogen 24 mg/dL (8-24); Bun/Creatinine Ratio 41.3 (12.0-20.0); CO2, Blood 29 mmol/L (21-32); Calcium, Blood 8.8 mg/dL (8.5-10.1); Chloride, Blood 100 mmol/L (98-108); Creatinine, Blood 0.58 mg/dL (0.40-1.00); Glomerular Filtration Rate >60 (60-); Glucose, Blood 273 mg/dL (70-99); Potassium, Blood 4.6 mmol/L (3.5-5.5); Sodium, Blood 135 mmol/L (136-145)
--- NOTE | 2021-03-21 06:41 | NUR ---
SHIFT SUMMARY PT ALERT AND ORIENTED X4. ON 10L HIGH FLOW NC MAINTAINING SATS OVER 93%. BP STABLE. HR 70'S NSR. PG DOES NOT DRAW. Q2 TURNS. SLEEPING MUCH BETTER THAN PREVIOUS EVENING. NO C/O PAIN OR DISCOMFORT. GALVAN IN PLACE DRAINING YELLOW URINE TO GRAVITY. IN BED SLEEPING WITH CALL ALARM AT SIDE. WILL CONTINUE TO MONITOR UNTIL REPORT GIVEN TO DAYSHIFT RN
--- NOTE | 2021-03-21 17:34 | NUR ---
SHIFT SUMMARY PT ALERT AND ORIENTED. VS STABLE. O2 SATS HAVE REMAINED ABOVE 90% ON 10L NC. UNABLE TO TITRATE BELOW 1OL THIS SHIFT. PT DENIES ANY PAIN. GALVAN PATENT AND DRAINING CLEAR YELLOW URINE. PT REPOSITIONED Q2H AND NEEDED. CAREGIVER KAVITA PROVIDED UPDATE THIS SHIFT. WILL CONTINUE TO MONITOR AND REPORT TO ONCOMING RN.
--- NOTE | 2021-03-22 06:37 | NUR ---
SHIFT SUMMARY PT ALERT AND ORIENTED X4. BP STABLE. HR 70'S-80'S NSR. ON 10L NC MAINTAINING O2 SATS OVER 89%. ATTEMPTED TITRATION TO 8L BUT PT UNABLE TO MAINTAIN SATS WITH THAT RATE. PT DENIES PAIN OR DISCOMFORT. Q2 TURNS. GALVAN IN PLACE DRAINING YELLOW URINE TO GRAVITY. IN BED SLEEPING WITH CALL ALARM AT SIDE. WILL CONTINUE TO MONITOR UNTIL REPORT GIVEN TO DAYSHIFT RN
--- NOTE | 2021-03-22 14:38 | NUR ---
Pt's 02 needs have drastically declined over the weekend. 3 days ago, pt's 02 needs were consistently 50% with minimal movement. Today, she is on 10% 02 and she is able to transfer to the bedside chair and tolerate it for increasingly longer periods. The plan remains unchanged.
--- NOTE | 2021-03-22 17:43 | NUR ---
SHIFT SUMMARY PT REMAINS ALERT AND ORIENTED. VS STABLE. O2 SATS HAVE REMAINED ABOVE 90% ON 10L NC. UNABLE TO TITRATE BELOW 10L TODAY. BP STABLE. PT DENIES ANY PAIN. GALVAN PATENT AND DRAINING. PT UP TO CHAIR FOR MEALS TODAY. BED BATH GIVEN. WILL CONTINUE TO MONITOR AND REPORT TO ONCOMING RN.
--- NOTE | 2021-03-23 05:22 | NUR ---
SHIFT SUMMARY PT ALERT AND ORIENTED X4. FLAT AFFECT, BUT COOPERATIVE TO CARE AND ANSWERS APPROPRIATELY. ON 10L MAINTAINING SATS OVER 90%. BP STABLE. NO PAIN OR DISCOMFORT. POWERGLIDE DRESSING CHANGED. GALVAN IN PLACE DRAINING YELLOW URINE TO GRAVITY. IN BED SLEEPING WIT HCALL ALARM AT SIDE. WILL CONTINUE TO MONITOR UNTIL REPORT GIVEN TO DAYSHIFT RN
--- NOTE | 2021-03-23 12:06 | NUR ---
PT TRANSFERRED TO ROOM 304 VIA BED, ALL BELONGINGS SENT WITH PT. REPORT GIVEN TO ELIAS LAW.
--- NOTE | 2021-03-23 12:39 | NUR ---
PATIENT CAME TO MEDICAL FLOOR SHORTLY AFTER NOON FROM PACU. SHE IS COVID POSITIVE. PATIENT IS DNR. 02 IS RUNNING AT 10 LITERS REGULAR HIGH THOMAS WITH A GREEN NASAL CANULA. PATIENT IS DIEBETIC. SHE IS GIVEN STEROIDS EVERY 8 HOURS. HEART SOUNDS APPEAR TACHY, BUT REGULAR. LS ARE DIMINISHED ON THE LEFT SIDE, BUT CLEAR. ON THE RIGHT, THERE ARE INSPIRATORY WHEEZES. SHE APPEARS TO HAVE SOME CONFUSION, ALTHOUGH SHE IS ALERT AND OREINTATED X 3. GALVAN CATHETER IN PLACE WITH DARK URINE. PHYSICALLY, SHE IS WEARK/DECONDITIONED. SHE DOES REQUIRE ASSISTANCE TO GET UP. SHE PREFERRS TO USE THE BED SIDE COMMODE (BM'S) PATIENT HAS NOT HAD A BM SINCE , BUT DID GET ADDITIONAL BOWEL MEDS BEFORE LEAVING PACU-(MIRALAX).
--- NOTE | 2021-03-23 16:24 | NUR ---
Met with pt today, he was lying on the bed on his right side. He was pleasant and cooperative. Denied pain, and appeared calm. Pt is not currently attempting to get out of bed unassisted and is not engaging in any agressive behaviors. Care management is attempting to find placement for the patient, and if pt's current health trajectory continues, he will likely discharge with hospice. His appetite remains poor. Palliative care will continue with daily visits, make recommendations when appropriate.
--- NOTE | 2021-03-24 04:37 | NUR ---
SHIFT SUMMARY PATIENT AOX3 WITH SOME FORGETFULLNESS AT TIME PLEASANT MOOD ABLE TO VOICED NEEDS NO SOB NOTED OXYGEN TATRATE TO 5L/MIN SAT 97% BY RT CONT NEB TX ORDERED.FOLLEY CATH DRAINING BROWN URINE PATENT.NO ACUTE CHANGE IN THIS SHIFT
--- NOTE | 2021-03-24 12:31 | NUR ---
Pt admitted on 03/11 with Covid-19 pneumonia, and respiratory failure. She has transitioned from high flow oxygen and C-pap down to 5L 02. She is working with PT, and she is regaining strength. She is scheduled to return home with Home Health services in the next 1-2 days.
--- NOTE | 2021-03-24 17:08 | NUR ---
PATIENT A/OX3, FORGETFUL AND REQUIRES REMINDERS ABOUT SAFETY. GALVAN D/C'D THIS SHIFT AND PATIENT VOIDED A SMALL AMOUNT. WEARING ATTENDS FOR SOME INCONTINENCE. VSS, WEANED TO 5LO2 AND SATS >90%. DENIES ANY PAIN OR DISCOMFORT. PLAN IS TO D/C BACK TO [facility] WITH HOME [facility]ALTH. FALL PRECAUTIONS IN PLACE PER PROTOCOL.
--- NOTE | 2021-03-25 05:10 | NUR ---
SHIFT SUMMARY PATIENT CALM NO ACUTE CHANGE NOTED NO SOB NOTED INCONTCARE DONE BY STAFF .
[2021-03-25] MEDS ORDERED: B-12500 MC2 PO (12:33)
[2021-03-25] MEDS ORDERED: Flonase 0.05% N16 GM (12:35)
[2021-03-25] MEDS ORDERED: DECADRON4 M1 PO (12:35)
[2021-03-25] MEDS ORDERED: GUAI600T33 PO (12:36)
[2021-03-25] MEDS ORDERED: METF500 PO (12:38)
--- NOTE | 2021-03-25 18:43 | NUR ---
DISCHARGE SUMMARY PATIENT DISCHARGED HOME BACK TO [facility]. HOME O2 EVALUATION DONE. PATIENT RECEIVED OXYGEN TANK AT HOSPITAL AND CONDENSOR SENT TO FACILITY. WHEELCHAIR SENT TO FACILITY. PATIENT PRESCRIPTIONS FAXED TO [facility] DUE TO PREFERRED PHARMACY UNABLE TO FILL PRESCRIPTIONS TODAY. DISCHARGE PAPERWORK AND PRESCRIPTION FOR GLUCOMETER AND SUPPLIES SENT WITH PATIENT. PATIENT TAKEN VIA WHEELCHAIR TRANSPORTATION VAN. ALL BELONGINGS TAKEN WITH PATIENT AND FACILITY NOTIFIED THAT SHE IS ON HER WAY.
== END 2021-03-25 18:22 | disposition home health service (06) | DRG 177 ==
LOC: ER 12:34 → PCU 16:12 → MEDS 16:12 → PCU 03-14 05:17 → MEDS 03-23 12:08
PROVIDERS: Family Medicine; Internal Medicine; Nurse Practitioner Acute Care; Student in an Organized Health Care Education/Training Program; ADMIT Internal Medicine
PROC: 8E0ZXY6 Isolation (ICD-10-PCS; principal; 2021-03-11)
PROC: 3E0333Z Introduction of Anti-inflammatory into Peripheral Vein, Percutaneous Approach (ICD-10-PCS; 2021-03-11)
PROC: XW033E5 Introduction of Remdesivir Anti-infective into Peripheral Vein, Percutaneous Approach, New Technology Group 5 (ICD-10-PCS; 2021-03-11)
PROC: 3E0DX3Z Introduction of Anti-inflammatory into Mouth and Pharynx, External Approach (ICD-10-PCS; 2021-03-11)
PROC: 5A09557 Assistance with Respiratory Ventilation, Greater than 96 Consecutive Hours, Continuous Positive Airway Pressure (ICD-10-PCS; 2021-03-14)
PROC: 5A0945A Assistance with Respiratory Ventilation, 24-96 Consecutive Hours, High Flow/Velocity Cannula (ICD-10-PCS; 2021-03-14)
DX: U07.1 COVID-19 (principal); J12.82 Pneumonia due to coronavirus disease 2019; J96.01 Acute respiratory failure with hypoxia; J44.0 Chronic obstructive pulmonary disease with (acute) lower respiratory infection; J44.1 Chronic obstructive pulmonary disease with (acute) exacerbation; Z68.42 Body mass index [BMI] 45.0-49.9, adult; Z51.5 Encounter for palliative care; Z66 Do not resuscitate; K21.9 Gastro-esophageal reflux disease without esophagitis; E87.6 Hypokalemia; E03.9 Hypothyroidism, unspecified; E66.01 Morbid (severe) obesity due to excess calories; R73.9 Hyperglycemia, unspecified; T38.0X5A Adverse effect of glucocorticoids and synthetic analogues, initial encounter; Z85.3 Personal history of malignant neoplasm of breast; Z87.891 Personal history of nicotine dependence
CPT/HCPCS: 0241U; 36415; 51703; 71045; 80048; 80053; 82728; 82947; 83036; 83615; 83735; 84100; 84145; 84484; 85025; 85379; 85610; 86140; 93005; 93010; 94640; 94660; 94761; 94762; 96374; 96375; 97110; 97161; 97165; 97530; 97535; 99285-25; A9270; C1751; J0248; J1100; J1650; J1815; J1885; J1940; J2930; J7050

== ENCOUNTER → 2022-09-02 | Outpatient (CLI) | payer OTHER ==
[~2022-09-02] MED LIST: ACET325 PO; ALBU90OI; B-12500 MC2 PO; DECADRON4 M1 PO; DOCU100 PO; DULCOLAX400 MG/5 M PO; EUTHYROX88 MCG PO; Flonase 0.05% N16 GM; GUAI600T33 PO; MAGNESIUM OXID500 MG PO; MELATONIN5 M1 PO; METF500 PO; MIRALAX17 GM PO; NYSTOP15 GM TOP; OLAN2.5 PO; OLAN5 PO; OMEP20ER PO; SENNA LAXATIVE8.6 MG PO; TAMO10 PO; TRAZ150T57 PO; Vitamin D1000 UNI1 PO
[2022-09-02 13:38] LABS: BASOPHILS ABSOLUTE AUTO 0.04 K/mm3 (0.00-0.23); BASOPHILS PERCENT AUTO 1 % (0-2); EOSINOPHILS ABSOLUTE AUTO 0.12 K/mm3 (0.00-0.68); EOSINOPHILS PERCENT AUTO 2 % (0-6); Hematocrit 41.5 % (33.0-51.0); Hemoglobin 13.1 g/dL (11.5-16.0); IMMATURE GRAN ABSOLUTE AUTO 0.01 K/mm3 (0.00-0.10); IMMATURE GRAN PERCENT AUTO 0 % (0-1); LYMPHOCYTES ABSOLUTE AUTO 1.06 K/mm3 (0.84-5.20); LYMPHOCYTES PERCENT AUTO 15 % (21-46); MONOCYTES ABSOLUTE AUTO 0.49 K/mm3 (0.16-1.47); MONOCYTES PERCENT AUTO 7 % (4-13); Mean Corpuscular HGB 27.6 pg (26.0-34.0); Mean Corpuscular HGB Conc 31.6 g/dL (31.5-36.5); Mean Corpuscular Volume 88 fL (80-100); Mean Platelet Volume 10.7 fL (9.1-12.4); NEUTROPHILS ABSOLUTE AUTO 5.46 K/mm3 (1.96-9.15); NEUTROPHILS PERCENT AUTO 76 % (41-73); Platelet Count 215 K/mm3 (150-400); RDW Coefficient Variation 14.7 % (11.7-14.2); RDW Standard Deviation 47.6 fL (35.1-46.3); Red Blood Cell Count 4.74 M/mm3 (3.80-5.20); White Blood Cell Count 7.18 K/mm3 (4.00-11.30)
[2022-09-02 16:09] LABS: Alanine Aminotransfer (ALT/SGP 16 U/L (12-78); Albumin, Blood 3.2 g/dL (3.4-5.0); Albumin/Globulin Ratio 0.9 (0.8-1.8); Alk Phos 68 U/L (50-136); Anion Gap 6 mmol/L (6-16); Aspartate Aminotrans (AST/SGOT 15 U/L (12-37); Bilirubin, Total 0.2 mg/dL (0.1-1.0); Blood Urea Nitrogen 13 mg/dL (8-24); Bun/Creatinine Ratio 22.8 (12.0-20.0); CHOL/HDL RATIO 3.2; CO2, Blood 27 mmol/L (21-32); Calcium, Blood 8.7 mg/dL (8.5-10.1); Chloride, Blood 106 mmol/L (98-108); Cholesterol 181 mg/dL (50-200); Creatinine, Blood 0.57 mg/dL (0.40-1.00); Globulin, Blood 3.4 g/dL (2.2-4.0); Glomerular Filtration Rate 95 (60-); Glucose, Blood 98 mg/dL (70-99); HDL Cholesterol 56 mg/dL (>39); LDL/HDL RATIO 1.7; Low Density Lipoprotein Chol 93 mg/dL (0-110); Potassium, Blood 4.3 mmol/L (3.5-5.5); Sodium, Blood 139 mmol/L (136-145); Total Protein, Blood 6.6 g/dL (6.4-8.2); Triglycerides 158 mg/dL (30-160); Very Low Density Lipoprot Chol 31 mg/dL (6-32)
== END ==
LOC: LAB SHORT 12:38 → LAB 12:38
PROVIDERS: Physician Assistant
DX: E03.9 Hypothyroidism, unspecified (principal); E11.9 Type 2 diabetes mellitus without complications
CPT/HCPCS: 80053; 80061; 83036; 84443; 85025

== ENCOUNTER → 2023-10-17 | Outpatient (CLI) | payer OTHER ==
[2023-10-19 14:34] LABS: HSV 1 SUBTYPE BY PCR Not Detected; HSV 2 SUBTYPE BY PCR Detected; HSV SUBTYPE SOURCE LOWER L BACK
== END ==
LOC: LAB 12:00 → LAB SHORT 12:00
PROVIDERS: Family Medicine
DX: B02.9 Zoster without complications (principal)
CPT/HCPCS: 87529

== ENCOUNTER → 2023-11-15 | Outpatient (CLI) | payer OTHER ==
[2023-11-15 14:42] LABS: BASOPHILS ABSOLUTE AUTO 0.04 K/mm3 (0.00-0.23); BASOPHILS PERCENT AUTO 1 % (0-2); EOSINOPHILS ABSOLUTE AUTO 0.17 K/mm3 (0.00-0.68); EOSINOPHILS PERCENT AUTO 2 % (0-6); Hematocrit 35.5 % (33.0-51.0); Hemoglobin 10.6 g/dL (11.5-16.0); IMMATURE GRAN ABSOLUTE AUTO 0.02 K/mm3 (0.00-0.10); IMMATURE GRAN PERCENT AUTO 0 % (0-1); LYMPHOCYTES ABSOLUTE AUTO 0.83 K/mm3 (0.84-5.20); LYMPHOCYTES PERCENT AUTO 11 % (21-46); MONOCYTES ABSOLUTE AUTO 0.76 K/mm3 (0.16-1.47); MONOCYTES PERCENT AUTO 10 % (4-13); Mean Corpuscular HGB 23.5 pg (26.0-34.0); Mean Corpuscular HGB Conc 29.9 g/dL (31.5-36.5); Mean Corpuscular Volume 79 fL (80-100); Mean Platelet Volume 9.5 fL (9.1-12.4); NEUTROPHILS ABSOLUTE AUTO 5.71 K/mm3 (1.96-9.15); NEUTROPHILS PERCENT AUTO 76 % (41-73); Platelet Count 240 K/mm3 (150-400); RDW Standard Deviation 50.4 fL (35.1-46.3); Red Blood Cell Count 4.52 M/mm3 (3.80-5.20); White Blood Cell Count 7.53 K/mm3 (4.00-11.30)
[2023-11-15 14:50] LABS: Albumin, Blood 2.6 g/dL (3.4-5.0); Albumin/Globulin Ratio 0.6 (0.8-1.8); Bilirubin, Total 0.2 mg/dL (0.1-1.0); Bun/Creatinine Ratio 19.8 (12.0-20.0); Calcium, Blood 8.8 mg/dL (8.5-10.1); Creatinine, Blood 0.81 mg/dL (0.40-1.00); Globulin, Blood 4.2 g/dL (2.2-4.0); Potassium, Blood 4.1 mmol/L (3.5-5.5); Total Protein, Blood 6.8 g/dL (6.4-8.2)
== END | disposition home or self-care (01) ==
LOC: LAB 14:36 → LAB SHORT 14:36
PROVIDERS: Physician Assistant
DX: R09.02 Hypoxemia (principal)
CPT/HCPCS: 80053; 83880; 85025

== ENCOUNTER 2024-01-20 10:13 | Inpatient (IN) | payer OTHER ==
[~2024-01-20] VITALS: Ht 167.6 cm; Wt 116.5 kg
[~2024-01-20 10:13] MED LIST changes: -ACET325 PO; +MELATONIN10 M1 PO; -MELATONIN5 M1 PO; -MIRALAX17 GM PO; +Nolvadex20 MG PO; -OLAN2.5 PO; -TAMO10 PO
[2024-01-20 10:49] LABS: BASOPHILS ABSOLUTE AUTO 0.04 K/mm3 (0.00-0.23); BASOPHILS PERCENT AUTO 0 % (0-2); EOSINOPHILS ABSOLUTE AUTO 0.06 K/mm3 (0.00-0.68); EOSINOPHILS PERCENT AUTO 1 % (0-6); Hematocrit 34.8 % (33.0-51.0); Hemoglobin 9.9 g/dL (11.5-16.0); IMMATURE GRAN ABSOLUTE AUTO 0.06 K/mm3 (0.00-0.10); IMMATURE GRAN PERCENT AUTO 1 % (0-1); LYMPHOCYTES ABSOLUTE AUTO 0.68 K/mm3 (0.84-5.20); LYMPHOCYTES PERCENT AUTO 6 % (21-46); MONOCYTES ABSOLUTE AUTO 0.71 K/mm3 (0.16-1.47); MONOCYTES PERCENT AUTO 6 % (4-13); Mean Corpuscular HGB 22.2 pg (26.0-34.0); Mean Corpuscular HGB Conc 28.4 g/dL (31.5-36.5); Mean Corpuscular Volume 78 fL (80-100); Mean Platelet Volume 8.8 fL (9.1-12.4); NEUTROPHILS ABSOLUTE AUTO 9.95 K/mm3 (1.96-9.15); NEUTROPHILS PERCENT AUTO 87 % (41-73); Platelet Count 259 K/mm3 (150-400); RDW Coefficient Variation 18.7 % (11.7-14.2); RDW Standard Deviation 52.6 fL (35.1-46.3); Red Blood Cell Count 4.45 M/mm3 (3.80-5.20)
[2024-01-20 11:14] LABS: Albumin, Blood 2.7 g/dL (3.4-5.0); Albumin/Globulin Ratio 0.8 (0.8-1.8); Bilirubin, Total 0.2 mg/dL (0.1-1.0); Bun/Creatinine Ratio 27.1 (12.0-20.0); Calcium, Blood 8.8 mg/dL (8.5-10.1); Creatinine, Blood 0.7 mg/dL (0.40-1.00); Globulin, Blood 3.5 g/dL (2.2-4.0); Potassium, Blood 4.6 mmol/L (3.5-5.5); Total Protein, Blood 6.2 g/dL (6.4-8.2)
[2024-01-20 11:31] LABS: Base Excess Venous 10.6 mmol/L; Bicarbonate Venous 32.8 mmol/L (24.0-30.0); PCO2 Venous 60.5 mmHg (38-42); pH Blood Venous 7.38 (7.34-7.37)
[2024-01-20] MEDS ORDERED: Furosemide 10 MG / ML 2ML Vial IV ONE (11:45)
[2024-01-20 11:51] LABS: Influenza A, PCR NEGATIVE (NEGATIVE); Influenza B, PCR NEGATIVE (NEGATIVE); Resp Syncytial Virus, PCR NEGATIVE (NEGATIVE); SARS-Cov-2 (COVID-19) PCR, MMC NEGATIVE (NEGATIVE)
[2024-01-20 12:12] LABS: Source, Urine Fem Cath
[2024-01-20 12:15] LABS: Appearance, Urine Clear (Clear); Bilirubin, Urine Neg (Neg); Blood, Urine Neg (Neg); Glucose Qualitative, Urine Neg (Neg); Ketones, Urine Neg (Neg); Leukocyte Esterase, Urine Neg (Neg); Nitrite, Urine Neg (Neg); Protein, Urine Neg (Neg); Urobilinogen, Urine NORM (Normal)
[2024-01-20 12:17] LABS: Color, Urine Pale Yellow (P-Yellow)
[2024-01-20] MEDS ORDERED: OLAN2.5 PO (12:52)
[2024-01-20] MEDS ORDERED: OLAN5 PO (12:53)
--- NOTE | 2024-01-20 12:57 | NUR ---
Referral and Case Conference: Received a call from pt's POA requesting palliative care consult for pt. Also spoke with Yuik, cement finisher of [facility] where pt resides regarding updated medication list. She stated concern that we didn't have an updated list. Spoke to pharmacist who will review reconciled medications prior to pt's admission. Requested faxed current list from [facility], pt's pharmacy be sent to [facility] pharmacist and ER provider/bedside RN. Pt's medications have since been reconciled and will follow up with pt and family regarding goals of care.
[2024-01-20] MEDS ORDERED: FLU VACC TS2024-25(6MOS UP)/PF 45 MCG/0.5 ML SYRINGE IM ONE (13:00)
[2024-01-20] MEDS ORDERED: ESCI20 PO (13:40)
[2024-01-20 14:55] VITALS: BP 126/65
--- NOTE | 2024-01-20 14:58 | NUR ---
TRANSFER SUMMARY: PT TRANSFERED TO MED FLOOR FROM ED. PT CAME BY [facility]TON AND SLID OVER TO THE BED HERE. PT AOX4 SOME LINENS DAMP, CHANGED AND CLEANED. GALVAN STILL IN PLACE. PT CURRENTLY RESTING IN BED. PLEASANT MOOD AND AFFECT. BED IN LOWEST POSITION AND CALL LIGHT IN REACH. CONTINUING CARE.
--- NOTE | 2024-01-20 17:28 | NUR ---
SHIFT SUMMARY: PT ARRIVED FROM ER IN THE AFTERNOON. COOPERATIVE IN INITIAL ASSESSMENT ANDTOLD THIS RN WHEN SHE DIDNT KNOW THE ANSWERS TO CERTAIN QUESTIONS. VITAL SIGNS STABLE, AND BLOOD SUGARS WELL CONTROLED. HASNT ATTEMPTED TO AMBULATE AND HAS BEEN WATCHING TV WHILE RESTING. CALLS APPROPRIATELY. FLAT AFFECT AND WITHDRAWN BUT STILL ANSWERING QUESTIONS APPROPRIATELY AND POLITELY. RESTING IN BED, BED IN LOWEST POSITION, CALL LIGHT IN REACH. CONTINUING CARE.
[2024-01-20] MEDS ORDERED: Albuterol 2.5 MG/3 ML VIAL INH PRN ×2 (17:50)
[2024-01-20] MEDS ORDERED: Miconazole Nitrate 2% 85 GM PWD TOP SCH (21:00)
[2024-01-20] MEDS ORDERED: Miconazole Nitrate 2% 43 GM PWD TOP SCH (21:00)
[2024-01-20] MEDS ORDERED: OLANZapine 5 MG Tab PO SCH (21:00)
[2024-01-20] MEDS ORDERED: Docusate Sodium 100 MG Cap PO SCH (21:00)
[2024-01-20] MEDS ORDERED: Melatonin 5 MG Tablet PO SCH (21:00)
[2024-01-20] MEDS ORDERED: Nystatin 100,000 Units/GM Powder 15 gm TOP SCH (21:00)
[2024-01-20] MEDS ORDERED: Acetaminophen325 M1 PO (21:50)
[2024-01-20] MEDS ORDERED: FERSU300 PO (21:51)
[2024-01-20] MEDS ORDERED: MIRALAX17 GM PO (21:54)
[2024-01-20] MEDS ORDERED: ACET325 PO (21:57)
--- NOTE | 2024-01-21 04:48 | NUR ---
SHIFT SUMMARY: PT IS A PLEASANT 78 YO FULL CODE. PT WAS ADMITTED FOR ACUTE RESP FAIL. PT IS ON TELE AND 85 SR. PT HAS A GALVAN WITH LARGE AMOUNTS OF OUTPUT. CATH CARE COMPLETED. PT IS A&OX4 AND USES CALL LIGHT APPROPRIATELY. PT HAS A VENOUS ULCER ON LEFT CALF. PT USES WALKER AT BASELINE BUT HAS NOT AMBULATED THIS SHIFT BUT HAS BEEN RESTING. PT HAS CALL LIGHT AND CONTINUES TO REST.
[2024-01-21 05:27] VITALS: BP 133/81
[2024-01-21] MEDS ORDERED: OxyCODONE 5 mg/Acetamin 325 mg TABLET PO PRN (05:45)
[2024-01-21 05:48] LABS: BASOPHILS ABSOLUTE AUTO 0.05 K/mm3 (0.00-0.23); BASOPHILS PERCENT AUTO 1 % (0-2); EOSINOPHILS ABSOLUTE AUTO 0.11 K/mm3 (0.00-0.68); EOSINOPHILS PERCENT AUTO 1 % (0-6); Hematocrit 34.9 % (33.0-51.0); Hemoglobin 9.7 g/dL (11.5-16.0); IMMATURE GRAN ABSOLUTE AUTO 0.03 K/mm3 (0.00-0.10); IMMATURE GRAN PERCENT AUTO 0 % (0-1); LYMPHOCYTES ABSOLUTE AUTO 0.78 K/mm3 (0.84-5.20); LYMPHOCYTES PERCENT AUTO 7 % (21-46); MONOCYTES ABSOLUTE AUTO 0.81 K/mm3 (0.16-1.47); MONOCYTES PERCENT AUTO 8 % (4-13); Mean Corpuscular HGB Conc 27.8 g/dL (31.5-36.5); Mean Corpuscular Volume 79 fL (80-100); Mean Platelet Volume 9.2 fL (9.1-12.4); NEUTROPHILS ABSOLUTE AUTO 8.72 K/mm3 (1.96-9.15); NEUTROPHILS PERCENT AUTO 83 % (41-73); Platelet Count 245 K/mm3 (150-400); RDW Coefficient Variation 18.7 % (11.7-14.2); RDW Standard Deviation 53.7 fL (35.1-46.3)
[2024-01-21] MEDS ORDERED: Levothyroxine Sodium 0.088 MG Tab PO SCH (06:00)
[2024-01-21] MEDS ORDERED: Omeprazole 20 MG CapCR PO SCH (06:00)
--- NOTE | 2024-01-21 06:34 | NUR ---
PT COMPLAINED OF A HEADACHE AND BACK PAIN SO I CALLED THE HOSPITALIST AND GOT AN ORDER FOR OXYCODONE PRN (SEE EMAR).PT REPORTS PAIN BEING BETTER
[2024-01-21 06:45] LABS: Bun/Creatinine Ratio 21.4 (12.0-20.0); Calcium, Blood 8.7 mg/dL (8.5-10.1); Creatinine, Blood 0.66 mg/dL (0.40-1.00); Potassium, Blood 4.2 mmol/L (3.5-5.5)
[2024-01-21 07:55] VITALS: BP 149/92
[2024-01-21] MEDS ORDERED: Cyanocobalamin 500 MCG Tab PO SCH (09:00)
[2024-01-21] MEDS ORDERED: Furosemide 10 MG/ML 4ML Vial IV SCH (09:00)
[2024-01-21] MEDS ORDERED: Fluticasone 0.05% Nasal Spray SCH (09:00)
[2024-01-21] MEDS ORDERED: Cholecalciferol 1000 Unit Tablet (=25MCG) PO SCH (09:00)
[2024-01-21] MEDS ORDERED: TAMOXIFEN CITRATE 10 MG PO SCH (09:00)
[2024-01-21] MEDS ORDERED: Magnesium Oxide 400 MG Tab PO SCH (09:00)
[2024-01-21] MEDS ORDERED: Enoxaparin 40 MG/0.4 ML SYR SC SCH (09:00)
[2024-01-21] MEDS ORDERED: Citalopram Hydrobromide 20 MG Tab PO SCH (09:00)
[2024-01-21] MEDS ORDERED: Sennosides 8.6 MG Tab PO SCH (09:00)
[2024-01-21 15:05] VITALS: BP 119/70
[2024-01-21] MEDS ORDERED: Insulin Regular 100 UNIT/ML 10ML Vial SC SCH (16:30)
--- NOTE | 2024-01-21 16:54 | NUR ---
SUMMARY PT STATES THAT SHE FEELS MUCH BETTER TODAY. DYSPNIC AT REST, 3L NC. GALVAN IN PLACE . PT RESTING COMFORTABLEY, ABLE TO MAKE NEEDS KNOWN. SLOW TO RESPOND. PLAN FOR PT/OT EVAL TOMORROW
[2024-01-21 19:52] VITALS: BP 140/92
[2024-01-22 02:25] VITALS: BP 128/79
[2024-01-22 05:41] LABS: BASOPHILS ABSOLUTE AUTO 0.03 K/mm3 (0.00-0.23); BASOPHILS PERCENT AUTO 0 % (0-2); EOSINOPHILS PERCENT AUTO 1 % (0-6); Hematocrit 35.3 % (33.0-51.0); Hemoglobin 9.8 g/dL (11.5-16.0); IMMATURE GRAN ABSOLUTE AUTO 0.04 K/mm3 (0.00-0.10); IMMATURE GRAN PERCENT AUTO 0 % (0-1); LYMPHOCYTES ABSOLUTE AUTO 0.81 K/mm3 (0.84-5.20); LYMPHOCYTES PERCENT AUTO 8 % (21-46); MONOCYTES ABSOLUTE AUTO 0.78 K/mm3 (0.16-1.47); MONOCYTES PERCENT AUTO 8 % (4-13); Mean Corpuscular HGB 22.1 pg (26.0-34.0); Mean Corpuscular HGB Conc 27.8 g/dL (31.5-36.5); Mean Corpuscular Volume 80 fL (80-100); Mean Platelet Volume 9.2 fL (9.1-12.4); NEUTROPHILS ABSOLUTE AUTO 8.16 K/mm3 (1.96-9.15); NEUTROPHILS PERCENT AUTO 82 % (41-73); Platelet Count 233 K/mm3 (150-400); RDW Coefficient Variation 18.4 % (11.7-14.2); RDW Standard Deviation 53.1 fL (35.1-46.3); Red Blood Cell Count 4.44 M/mm3 (3.80-5.20); White Blood Cell Count 9.92 K/mm3 (4.00-11.30)
[2024-01-22 06:05] LABS: Bun/Creatinine Ratio 22.7 (12.0-20.0); Calcium, Blood 8.4 mg/dL (8.5-10.1); Creatinine, Blood 0.62 mg/dL (0.40-1.00)
--- NOTE | 2024-01-22 06:34 | NUR ---
PT IS ON 3L O2 BY OXIMASK PT HAS BEEN MOUTH BREATHING WHEN ASLEEP AND DOES NOT MAINTAIN O2 SATS WELL ON ROOM AIR. PT DOES HAVE DIMINISHED LUNG SOUNDS THROUGHOUT WITH EXPIRATORY WHEEZE. PT ALSO HAS A COARSE COUGH W/O SPUTUM PRODUCATION AT THIS TIME. PT HAS BEEN REPOSITIONED THROUGHOUT THE SHIFT. PT HAS DECLINED REPOSITIONING EVERY 2 HOURS BUT DOES ALLOW REPOSITIONING THROUGHOUT SHIFT. PT AOX3-4, TAKES PILLS WHOLE WITH WATER. GALVAN IN PLACE CONTINUES TO DRAIN WELL.
[2024-01-22 07:38] VITALS: BP 148/86
--- NOTE | 2024-01-22 13:38 | NUR ---
DR PENG TO BEDSIDE: VERBAL ORDER FOR 1800mL FLUID RESTRICTION. PATIENT ALREADY AT 1100mL FOR THE DAY. PATIENT NOTIFIED AND SIGN PLACED IN ROOM.
[2024-01-22 15:14] VITALS: BP 126/80
[2024-01-22 19:48] VITALS: BP 130/80
--- NOTE | 2024-01-22 19:58 | NUR ---
DAY SHIFT SUMMARY: A&Ox2-3. PLEASANT AND COOPERATIVE WITH CARE. DOES NOT CALL APPROPRIATELY, BUT WILL PRESS CALL LIGHT AND EITHER FORGET SHE HAD CALLED OR NOT KNOW WHY SHE HAD CALLED. STATES, "I NEED HELP" BUT WHEN ASKED WITH WHAT SHE NEEDS HELP, JUST STARES BLANKLY AT STAFF. O2 TAPER PER DR. PENG; DESATTED TO 82% ON RA. IMPROVE MENTATION WITH O2 APPLICATION, REQUIRING UP TO 4LPM/MASK DUE TO MOUTH BREATHING. MEDS WHOLE WITH FLUIDS. TELE NSR. NO C/O PAIN OR DISCOMFORT. ON BED DSOUZA, BUT NO BM. GALVAN PATENT AND DRAININ TO GRAVITY. PER DR PENG, ADDITION OF 1800mL FLUID RESTRICTION, STRICT I/Os AND DAILY WEIGHT TO BE DONE AT 0600. BED IN LOWEST POSITION, CALL IGHT WITHIN REACH, ALL NEEDS MET. REPORT TO ONCOMING NURSE.
--- NOTE | 2024-01-23 05:43 | NUR ---
NOC SUMMARY- PT HAS BEEN SOMNOLENT THIS SHIFT. PT HAS BEEN FOUND TO DESAT INTO THE 80'S. PT IS ON OXYMASK @ 3 LPM WHILE SLEEPING. PT ON CONTINOUS SPO2 W/ SATS >90%. PT REPOSITIONED TOLERATED. PT HAD NO TELE EVENTS REPORTED. PT GALVAN DRAINING TO GRAVITY. DAILY WEIGHT COMPLETED. CALL LIGHT IN REACH AND BED ALARM ON.
[2024-01-23 05:57] VITALS: BP 138/85
[2024-01-23 07:41] VITALS: BP 151/86
[2024-01-23 15:57] VITALS: BP 146/95
[2024-01-23] MEDS ORDERED: Ipratropium/Albuterol SulF 2.5-0.5MG/3 ML Amp INH SCH (16:55)
--- NOTE | 2024-01-23 19:11 | NUR ---
SHIFT SUMMARY PATIENT A/OX2. 2L WITH OXYMASK PATIENT DESATS DOWN TO 79% ON ROOM AIR. PATIENT IS ROOM AIR AT BASELINE AT HALF-WAY. 3L NASAL CANNULA PLACED WITH MEALS AND PO FLUIDS. DR. PENG PUT IN DISCHARGE ORDERS, CONCERN FOR DISCHARGE BACK TO HALF-WAY PATIENT IS CONFUSED AND PULLING OFF OXYGEN MASK. RT DID A HOME O2 EVAL, SEE FLORESITA NOTE. STOOD AT EDGE OF BED AND GOT DIZZY AND DYSPNIC SO SAT PATIENT BACK DOWN DURING HOME 02 EVAL. GALVAN WAS REMOVED AND PUREWICK PLACED, URINATING FREQUENTLY AND LARGE AMOUNTS, URINE CLEAR WITH FAINT YELLOW. IV REPLACED, LEFT HAND IV INFILTRATED. NEW IV IN RIGHT FOREARM. PT TO RE-EVALUATE IN AM. UNALBE TO MAKE NEEDS KNOWN. CALL LIGHT IN REACH. BED ALARM ON.
[2024-01-23 19:56] VITALS: BP 126/72
[2024-01-23 19:57] VITALS: BP 126/72
--- NOTE | 2024-01-24 03:57 | NUR ---
NOC SUMMARY- PT MORE ALERT THIS SHIFT. PT INTERACTING AND ANSWERING SIMPLE QUESTIONS. PT REPORTS SHE REALLY WANTS TO GO HOME. PT HAS BEEN VOIDING WITH PUREWICK DEVICE. PT BRIEF CHANGED NEEDED PT REPOSITIONED Q2. PT SLEEPING WITH OXY MASK. SPO2 > 90%. BED ALARM ON AND CALL LIGHT IN REACH.
[2024-01-24 05:32] VITALS: BP 124/71
[2024-01-24 07:16] VITALS: BP 147/86
[2024-01-24 15:23] VITALS: BP 132/93
--- NOTE | 2024-01-24 15:26 | NUR ---
SHIFT SUMMARY PATIENT STATED SHE WAS SOB THIS AM. RESPIRATIONS WERE 20 THIS AM. PRODUCTIVE COUGH OF THICK BARRIOS MUCUS. RT DELIVERING BREATHING TX. PHYSICAL THERAPY RE-EVALUATED TODAY AND RECOMMEND SN[facility] FOR FURTHER THERAPY BEFORE GOING BACK TO [facility]. PT INCONTINENT OF URINE, GOING FREQUENTLY. PUREWICK IN PLACE. ATTENDS CHANGED PRN. GOT PATIENT UP TO CHAIR 2 PERSON ASSIST FOR BREAKFAST AND THEN PHYSICAL THERAPY GOT HER UP AGAIN FOR LUNCH TO CHAIR. PT IS BACK IN BED NOW, UNABLE TO MAKE NEEDS KNOWN. DOES NOT USE CALL BRICEÑO APPROPRIATLEY. A/[address] COOPERATIVE AND PLEASANT BUT NEUTRAL. NEEDS REMINDING TO KEEP OXYMASK ON FACE, PATIENT IS A MOUTH BREATHER AND DOES NOT TOLERATE NASAL CANNULA. NASAL CANNULA IS PLACED WITH MEALS. TOLERATING 3L OXYMASK. DESATS TO LOW 80'S ON ROOM AIR.
[2024-01-24 20:06] VITALS: BP 130/80
--- NOTE | 2024-01-25 04:18 | NUR ---
SHIFT SUMMARY PT ALERT ORIENTED TO SELF ONLY. SHE HAS BEEN CONFUSED THIS SHIFT AND HAS TRIED GETTING OUT OF BED SEVERAL TIMES. VSS ON 3L VIA OXIMASK SATTING AT 93%. C/O GENERALIZED PAIN MEDICATED WITH OXY WITH GOOD RELIEF. REMAINS ON TELEMETRY AT [facility] AT 91 WITH A 1ST DEGREE BLOCK. SHE CONTINUES ON STRICT I&O AND DAILY WEIGHT. REMAINS ON A CONTINUOUS PULSE OX. CONTINUES ON A PUREWICK WITH DARK GILDARDO URINE SHE CONTINUES ON A 1800 ML FLUID RESTRICTION. FS DONE AC AND HS WAS 149. SHE GETS SOB ON EXERTION AND O2 WILL GO DOWN TO 80 ON RA. SLEEPING AT THIS TIME WITH CALL LIGHT IN REACH AND BED ALARM ON
[2024-01-25 04:56] VITALS: BP 123/60
[2024-01-25 07:35] VITALS: BP 118/61
[2024-01-25] MEDS ORDERED: ALBU2.5V5 INH (12:54)
[2024-01-25] MEDS ORDERED: Percocet 5-3251 EACH PO (12:56)
[2024-01-25] MEDS ORDERED: HUMULIN R100 UNIT/2 (12:57)
[2024-01-25] MEDS ORDERED: IPRAT-ALBUT 0.5-3 ML INH (12:57)
[2024-01-25 13:40] LABS: CORONAVIRUS COVID-19 AG Negative (NEGATIVE); INFLUENZA A AG Negative (NEGATIVE); INFLUENZA B AG Negative (NEGATIVE)
--- NOTE | 2024-01-25 16:02 | NUR ---
DISCHARGE SUMMARY: PT DISCHARGED TO R AT 1500 TODAY. PT ASSISTED WITH PACKING UP BELONGINGS. PT SENT VIA [facility]SP[facility] ON 3 LPM VIA [place]. BELONGINGS INCLUDING DENTURES SENT WITH PT. ATTEMPTED TO GIVE REPORT TO R. LEFT MESSAGE REQUESTING A RETURN CALL.
== END 2024-01-25 14:55 | DRG 291 ==
LOC: ER 10:13 → MEDS 12:59 → ENPENDDIS 01-23 17:43 → MEDS 01-25 14:55
PROVIDERS: Emergency Medicine; Internal Medicine; Physician Assistant; ADMIT Family Medicine
DX: I11.0 Hypertensive heart disease with heart failure (principal); I50.31 Acute diastolic (congestive) heart failure; J96.01 Acute respiratory failure with hypoxia; Z68.41 Body mass index [BMI] 40.0-44.9, adult; J96.12 Chronic respiratory failure with hypercapnia; E66.01 Morbid (severe) obesity due to excess calories; D63.8 Anemia in other chronic diseases classified elsewhere; E11.9 Type 2 diabetes mellitus without complications; K44.9 Diaphragmatic hernia without obstruction or gangrene; E03.9 Hypothyroidism, unspecified; I27.20 Pulmonary hypertension, unspecified; K21.9 Gastro-esophageal reflux disease without esophagitis; J44.9 Chronic obstructive pulmonary disease, unspecified; M85.851 Other specified disorders of bone density and structure, right thigh; Z85.3 Personal history of malignant neoplasm of breast; Z79.899 Other long term (current) drug therapy; Z79.890 Hormone replacement therapy; Z79.84 Long term (current) use of oral hypoglycemic drugs; Z87.891 Personal history of nicotine dependence; Z88.1 Allergy status to other antibiotic agents; Z91.011 Allergy to milk products; Z88.8 Allergy status to other drugs, medicaments and biological substances; Z91.018 Allergy to other foods; Z78.0 Asymptomatic menopausal state; M85.852 Other specified disorders of bone density and structure, left thigh
CPT/HCPCS: 0241U; 36415; 51701; 51702; 71046; 77085; 80048; 80053; 81003; 82803; 82947; 83880; 85025; 87428-QW; 93005; 93010; 93306; 94640; 94664; 94760; 94761; 94762; 96374-59; 97110; 97116; 97162; 97530; 99285-25; A9270; J1650; J1940

== ENCOUNTER 2024-01-27 05:35 | Emergency (ER) | payer OTHER ==
[~2024-01-27] VITALS: Ht 165.1 cm; Wt 117.9 kg
[~2024-01-27 05:35] MED LIST changes: +ACET325 PO; +ALBU2.5V5 INH; +Acetaminophen325 M1 PO; +ESCI20 PO; +FERSU300 PO; +HUMULIN R100 UNIT/2; +IPRAT-ALBUT 0.5-3 ML INH; +MIRALAX17 GM PO; +OLAN2.5 PO; +Percocet 5-3251 EACH PO
[2024-01-27 06:04] LABS: BASOPHILS ABSOLUTE AUTO 0.04 K/mm3 (0.00-0.23); BASOPHILS PERCENT AUTO 0 % (0-2); EOSINOPHILS PERCENT AUTO 1 % (0-6); Hematocrit 38.7 % (33.0-51.0); Hemoglobin 11.3 g/dL (11.5-16.0); IMMATURE GRAN ABSOLUTE AUTO 0.06 K/mm3 (0.00-0.10); IMMATURE GRAN PERCENT AUTO 1 % (0-1); LYMPHOCYTES ABSOLUTE AUTO 0.81 K/mm3 (0.84-5.20); LYMPHOCYTES PERCENT AUTO 6 % (21-46); MONOCYTES ABSOLUTE AUTO 0.92 K/mm3 (0.16-1.47); MONOCYTES PERCENT AUTO 7 % (4-13); Mean Corpuscular HGB 22.4 pg (26.0-34.0); Mean Corpuscular HGB Conc 29.2 g/dL (31.5-36.5); Mean Corpuscular Volume 77 fL (80-100); Mean Platelet Volume 9.3 fL (9.1-12.4); NEUTROPHILS ABSOLUTE AUTO 10.79 K/mm3 (1.96-9.15); NEUTROPHILS PERCENT AUTO 85 % (41-73); Platelet Count 244 K/mm3 (150-400); RDW Coefficient Variation 18.6 % (11.7-14.2); Red Blood Cell Count 5.05 M/mm3 (3.80-5.20); White Blood Cell Count 12.72 K/mm3 (4.00-11.30)
[2024-01-27 06:25] LABS: Alanine Aminotransfer (ALT/SGP 23 U/L (12-78); Albumin/Globulin Ratio 0.7 (0.8-1.8); Alk Phos 82 U/L (50-136); Anion Gap 10 mmol/L (3-11); Aspartate Aminotrans (AST/SGOT 19 U/L (12-37); Bilirubin, Total 0.4 mg/dL (0.1-1.0); Blood Urea Nitrogen 18 mg/dL (8-24); Bun/Creatinine Ratio 27.9 (12.0-20.0); CO2, Blood 36 mmol/L (21-32); Calcium, Blood 9.2 mg/dL (8.5-10.1); Chloride, Blood 94 mmol/L (98-108); Creatinine, Blood 0.65 mg/dL (0.40-1.00); Ethanol (Alcohol), Blood, Med <3 mg/dL; Globulin, Blood 4.2 g/dL (2.2-4.0); Glomerular Filtration Rate 91 (60-); Glucose, Blood 142 mg/dL (70-99); Potassium, Blood 3.5 mmol/L (3.5-5.5); Sodium, Blood 136 mmol/L (136-145); Total Protein, Blood 7.2 g/dL (6.4-8.2)
[2024-01-27 08:19] LABS: U Amphetamine Screen Not Detected; U Barbituate Screen Not Detected; U Benzodiazapine Screen Not Detected; U Cocaine Screen Not Detected; U Methadone Screen Not Detected; U Methamphetamine Screen Not Detected
[2024-01-27 08:20] LABS: U Buprenorphine Screen Not Detected; U Cannabinoids Screen Not Detected; U Opiates Screen Not Detected; U Oxycodone Screen Not Detected; U Phencyclidine Screen Not Detected
[2024-01-27 11:26] LABS: Source, Urine Clean Catch
[2024-01-27 12:10] LABS: Bilirubin, Urine Neg (Neg); Blood, Urine Neg (Neg); Glucose Qualitative, Urine Neg (Neg); Ketones, Urine Neg (Neg); Leukocyte Esterase, Urine Neg (Neg); Nitrite, Urine Neg (Neg); Protein, Urine Neg (Neg); Specific Gravity, Urine 1.005 (1.003-1.022); Urobilinogen, Urine NORM (Normal)
[2024-01-27 12:22] LABS: Appearance, Urine Clear (Clear); Color, Urine Yellow (P-Yellow)
[2024-01-27 14:30] VITALS: BP 116/80
== END 2024-01-27 15:03 | disposition home or self-care (01) ==
LOC: ER 05:35
PROVIDERS: Emergency Medicine; Student in an Organized Health Care Education/Training Program
DX: G31.84 Mild cognitive impairment of uncertain or unknown etiology (principal); I50.30 Unspecified diastolic (congestive) heart failure; J44.9 Chronic obstructive pulmonary disease, unspecified; E11.9 Type 2 diabetes mellitus without complications; E03.9 Hypothyroidism, unspecified; E66.01 Morbid (severe) obesity due to excess calories; Z68.41 Body mass index [BMI] 40.0-44.9, adult; Z91.81 History of falling; Z99.81 Dependence on supplemental oxygen; Z88.5 Allergy status to narcotic agent; Z88.0 Allergy status to penicillin; Z88.8 Allergy status to other drugs, medicaments and biological substances; Z88.1 Allergy status to other antibiotic agents; Z91.011 Allergy to milk products; Z79.899 Other long term (current) drug therapy; Z79.890 Hormone replacement therapy; Z79.4 Long term (current) use of insulin; Z79.84 Long term (current) use of oral hypoglycemic drugs; Z87.891 Personal history of nicotine dependence
CPT/HCPCS: 70450; 71045; 72125; 80053; 80320; 81003; 84484; 85025; 93005; 93010; 99285-25; P9612